=== PATIENT | female | born 1995 | race Caucasian/White ===

== ENCOUNTER 2025-01-25 20:19 | Inpatient (IN) | payer OTHER ==
[2025-01-25] MEDS: SODIUM CHLORIDE 0.9% 1,000 ML IV ONE (21:17)
[2025-01-25] MEDS: DEXAMETHASONE SOD PHOSPHATE 10 MG/ML 1 ML VIAL IV STA (21:17)
[2025-01-25 21:25] LABS: Basophils # (A) 0.14 10*3/uL (0.00-0.10); Basophils % (A) 1.1 %; Eosinophils # (A) 0.67 10*3/uL (0.04-0.35); Eosinophils % (A) 5.3 %; HCT 38.7 % (37.2-46.3); Lymphocytes # (A) 2.54 10*3/uL (0.90-5.00); Lymphocytes % (A) 19.9 %; MCHC 33.6 g/dL (32.0-37.0); MCV 86.4 fL (80.0-97.0); Mean Platelet Volume 9.2 fL (9.5-12.2); Monocytes # (A) 0.99 10*3/uL (0.20-1.00); Monocytes % (A) 7.8 %; Neutrophils # (A) 8.39 10*3/uL (1.80-7.70); Neutrophils % (A) 65.7 %; Platelet Count 568 10*3/uL (140-440); RBC 4.48 10*6/uL (4.10-5.20); RDW 13.7 % (11.5-14.5); WBC 12.75 10*3/uL (4.50-10.00)
--- NOTE | 2025-01-25 21:36 | ED ---
ENT HPI - General Chief complaint: ENT Stated complaint: Throate is swollen,PATRICIA Time Seen by Provider: 01/25/25 20:38 Source: patient Mode of arrival: ambulatory Limitations: no limitations - History of Present Illness Initial comments: 29-year-old female presenting with chief complaint of throat pain and swelling. Patient states she was diagnosed with an abscess to her tonsil last week. She was started on Augmentin. Patient reports that she does not feel any better. She still has significant pain and swelling. This is now affecting her swallowing and breathing. She is having difficulty opening her mouth. - Related Data Home Medications Medication Instructions Recorded Confirmed lamoTRIgine [LaMICtal] 25 mg PO HS 01/26/25 01/26/25 Allergies Allergy/AdvReac Type Severity Reaction Status Date / Time No Known Allergies Allergy Verified 01/26/25 07:57 Review of Systems ROS Statement: Those systems with pertinent positive or pertinent negative responses have been documented in the HPI. ROS Other: All systems not noted in ROS Statement are negative. Past Medical History Past Medical History: No Reported History History of Any Multi-Drug Resistant Organisms: None Reported Past Surgical History: No Surgical Hx Reported Past Psychological History: Bipolar, Depression Smoking Status: Never smoker Past Alcohol Use History: Occasional Past Drug Use History: Marijuana General Exam Limitations: no limitations General appearance: alert, in no apparent distress Head exam: Present: atraumatic, normocephalic, normal inspection Eye exam: Present: normal appearance, EOMI. Absent: periorbital swelling Expanded Mouth exam: Present: trismus. Absent: drooling Throat exam: tonsillar erythema, L peritonsillar mass Neck exam: Present: normal inspection. Absent: meningismus Respiratory exam: Absent: respiratory distress, stridor Cardiovascular Exam: Present: regular rate Neurological exam: Present: alert, oriented X3 Psychiatric exam: Present: normal affect, normal mood Skin exam: Present: warm, dry, normal color Course Vital Signs 01/25/25 01/26/25 01/26/25 20:34 00:00 01:00 Temperature 98.3 F Pulse Rate 87 93 93 Respiratory 18 16 17 Rate Blood Pressure 126/77 112/66 102/65 O2 Sat by Pulse 97 96 95 Oximetry 01/26/25 01/26/25 01/26/25 06:05 08:06 13:07 Temperature 97.9 F Pulse Rate 70 80 83 Respiratory 16 18 16 Rate Blood Pressure 104/61 113/79 118/53 O2 Sat by Pulse 96 98 98 Oximetry 01/26/25 14:10 Temperature 97.8 F Pulse Rate 89 Respiratory 18 Rate Blood Pressure 101/61 O2 Sat by Pulse 98 Oximetry Medical Decision Making - Medical Decision Making Was pt. sent in by a medical professional or institution (, PA, [employer], urgent care, hospital, or custodial...) When possible be specific @ -No Did you speak to anyone other than the patient for history (EMS, parent, family, police, friend...)? What history was obtained from this source @ -No Did you review nursing and triage notes (agree or disagree)? Why? @ -I reviewed and agree with nursing and triage notes Were old charts reviewed (outside hosp., previous admission, EMS record, old EKG, old radiological studies, urgent care reports/EKG's, custodial records)? Report findings @ -No old charts were reviewed Differential Diagnosis (chest pain, altered mental status, abdominal pain women, abdominal pain men, vaginal bleeding, weakness, fever, dyspnea, syncope, headache, dizziness, GI bleed, back pain, seizure, CVA, palpatations, mental health, musculoskeletal)? @ -Differential includes peritonsillar abscess, strep pharyngitis, peritonsillar mass, not an all-inclusive list EKG interpreted by me (3pts min.). @ -As above X-rays interpreted by me (1pt min.). @ -None done CT interpreted by me (1pt min.). @ -CT shows ill-defined hypodensity within the left tonsillar pillar slightly hypodense may be a 1.3 x 2.1 cm phlegmon could be moving towards developing into an abscess U/S interpreted by me (1pt. min.). @ -None done What testing was considered but not performed or refused? (CT, X-rays, U/S, labs)? Why? @ -None What meds were considered but not given or refused? Why? @ -None Did you discuss the management of the patient with other professionals (professionals i.e. , CHUCK, [employer], lab, RT, psych nurse, social media marketing analyst, booth cashier, teacher, credit risk review officer, director of casework services)? Give summary @ -My attending spoke with the [facility] provider on-call who accepted admission Was smoking cessation discussed for >3mins.? @ -No Was critical care preformed (if so, how long)? @ -No Were there social determinants of health that impacted care today? How? (Homelessness, low income, unemployed, alcoholism, drug addiction, tr ansportation, low edu. Level, literacy, decrease access to med. care, m[facility], rehab)? @ -No Was there de-escalation of care discussed even if they declined (Discuss DNR or withdrawal of care, Hospice)? DNR status @ -No What co-morbidities impacted this encounter? (DM, HTN, Smoking, COPD, CAD, Cancer, CVA, ARF, Chemo, Hep., AIDS, mental health diagnosis, sleep apnea, morbid obesity)? @ -None Was patient admitted / discharged? Hospital course, mention meds given and route, prescriptions, significant lab abnormalities, going to OR and other pertinent info. @ -29-year-old female presenting with chief complaint of throat pain. Patient was recently treated with Augmentin for strep. She has a painful left-sided peritonsillar mass. She has trismus on exam as well. White count 12.75. CT confirms that there is a phlegmon that could be developing into an abscess. Patient was treated with Decadron, pain medication, and Unasyn. She will be admitted. She is agreeable with this plan. I discussed this case with my attending Dr. Leon Undiagnosed new problem with uncertain prognosis? @ -No Drug Therapy requiring intensive monitoring for toxicity (Heparin, Nitro, Insulin, Cardizem)? @ -No Were any procedures done? @ -No Diagnosis/symptom? @ -Peritonsillar infection Acute, or Chronic, or Acute on Chronic? @ -Acute Uncomplicated (without systemic symptoms) or Complicated (systemic symptoms)? @ -Complicated Side effects of treatment? @ -No Exacerbation, Progression, or Severe Exacerbation? @ -No Poses a threat to life or bodily function? How? (Chest pain, [place], [place], pneumonia, PE, COPD, DKA, ARF, appy, cholecystitis, CVA, Diverticulitis, Homicidal, Suicidal, threat to staff... and all critical care pts) @ -Yes - Lab Data Result diagrams: 01/25/25 21:15 01/25/25 21:15 Lab Results 01/25/25 01/25/25 01/25/25 Range/Units 21:15 21:15 21:15 WBC 12.75 H (4.50-10.00) 10*3/uL RBC 4.48 (4.10-5.20) 10*6/uL Hgb 13.0 (12.0-15.0) g/dL Hct 38.7 (37.2-46.3) % MCV 86.4 (80.0-97.0) fL MCH 29.0 (27.0-32.0) pg MCHC 33.6 (32.0-37.0) g/dL Plt Count 568 H (140-440) 10*3/uL MPV 9.2 L (9.5-12.2) fL Immature Gran % (Auto) 0.2 % Neutrophils % 65.7 % Lymphocytes % 19.9 % Monocytes % 7.8 % Eosinophils % 5.3 % Basophils % 1.1 % Immature Gran # 0.02 (0.00-0.04) 10*3/uL Neutrophils # 8.39 H (1.80-7.70) 10*3/uL Lymphocytes # 2.54 (0.90-5.00) 10*3/uL Monocytes # 0.99 (0.20-1.00) 10*3/uL Eosinophils # 0.67 H (0.04-0.35) 10*3/uL Basophils # 0.14 H (0.00-0.10) 10*3/uL Sodium 140 (137-145) mmol/L Potassium 4.1 (3.5-5.1) mmol/L Chloride 103 (98-107) mmol/L Carbon Dioxide 27 (22-30) mmol/L Anion Gap 10 mmol/L BUN 17 (7-17) mg/dL Creatinine 0.82 (0.52-1.04) mg/dL Est GFR (CKD-EPI)AfAm >90 (>60 ml/min/1.73 sqM) Est GFR (CKD-EPI)NonAf >90 (>60 ml/min/1.73 sqM) Glucose 99 (74-99) mg/dL Plasma Lactic Acid Robbie 0.9 (0.7-2.0) mmol/L Calcium 9.6 (8.4-10.2) mg/dL Total Bilirubin 0.5 (0.2-1.3) mg/dL AST 31 (14-36) U/L ALT 34 (4-34) U/L Alkaline Phosphatase 73 (38-126) U/L Total Protein 8.0 (6.3-8.2) g/dL Albumin 4.5 (3.5-5.0) g/dL HCG, Qual 01/25/25 Range/Units 21:34 WBC (4.50-10.00) 10*3/uL RBC (4.10-5.20) 10*6/uL Hgb (12.0-15.0) g/dL Hct (37.2-46.3) % MCV (80.0-97.0) fL MCH (27.0-32.0) pg MCHC (32.0-37.0) g/dL Plt Count (140-440) 10*3/uL MPV (9.5-12.2) fL Immature Gran % (Auto) % Neutrophils % % Lymphocytes % % Monocytes % % Eosinophils % % Basophils % % Immature Gran # (0.00-0.04) 10*3/uL Neutrophils # (1.80-7.70) 10*3/uL Lymphocytes # (0.90-5.00) 10*3/uL Monocytes # (0.20-1.00) 10*3/uL Eosinophils # (0.04-0.35) 10*3/uL Basophils # (0.00-0.10) 10*3/uL Sodium (137-145) mmol/L Potassium (3.5-5.1) mmol/L Chloride (98-107) mmol/L Carbon Dioxide (22-30) mmol/L Anion Gap mmol/L BUN (7-17) mg/dL Creatinine (0.52-1.04) mg/dL Est GFR (CKD-EPI)AfAm (>60 ml/min/1.73 sqM) Est GFR (CKD-EPI)NonAf (>60 ml/min/1.73 sqM) Glucose (74-99) mg/dL Plasma Lactic Acid Robbie (0.7-2.0) mmol/L Calcium (8.4-10.2) mg/dL Total Bilirubin (0.2-1.3) mg/dL AST (14-36) U/L ALT (4-34) U/L Alkaline Phosphatase (38-126) U/L Total Protein (6.3-8.2) g/dL Albumin (3.5-5.0) g/dL HCG, Qual Not Detected Disposition Clinical Impression: Peritonsillar cellulitis Disposition: ADMITTED IP TO THIS HOSP Condition: Fair Time of Disposition: 23:42
[2025-01-25 21:38] LABS: ALT 34 U/L (4-34); AST 31 U/L (14-36); African American GFR (CKD) >90 (>60 ml/min/1.73 sqM); Albumin 4.5 g/dL (3.5-5.0); Alkaline Phosphatase 73 U/L (38-126); Anion Gap 10 mmol/L; Blood Urea Nitrogen 17 mg/dL (7-17); Calcium 9.6 mg/dL (8.4-10.2); Carbon Dioxide 27 mmol/L (22-30); Chloride 103 mmol/L (98-107); Glucose 99 mg/dL (74-99); Non-African American GFR(CKD) >90 (>60 ml/min/1.73 sqM); Potassium 4.1 mmol/L (3.5-5.1); Sodium 140 mmol/L (137-145); Total Bilirubin 0.5 mg/dL (0.2-1.3)
[2025-01-25] MEDS: KETOROLAC 15 MG/ML 1 ML VIAL IVP STA (22:28)
--- NOTE | 2025-01-25 23:06 | CT ---
EXAMINATION TYPE: CT soft tissue neck w con DATE OF EXAM: 01/25/2025 10:18 PM COMPARISON: None. 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 Reconstructed images in the coronal plane and sagitt al plane are reviewed. Contrast used:100 mL of Isovue 300 with IV Contrast, (none if empty) Oral contrast used: (none if empty) CT DLP: 134.9 mGycm, Automated exposure control for dose reduction was used. FINDINGS: Limited CT sections are obtained the lung apices. The lung apices appear clear. CT neck: Research Program Manager spaces are normal. Paranasal sinuses and mastoid air cells are clear. Parotid glands appear normal and symmetrical. Submandibular glands, are normal. Parapharyngeal spac es are normal. No suspicious adenopathy is evident. Left tonsillar pillar is full with some ill-defined slight hypodensity present. Phlegmon developing t owards abscess may be present measuring 1.3 x 2.1 cm. The right torus tubarius and fossa of Rosenmul ler are normal. There appears to be effacement of the left fossa of Rosenmuller. Report was called a nd case discussed with the emergency room at the time of interpretation. The hypopharynx appears within normal limits. Vocal cord level appear symmetrical. Thyroid as visualized is normal. Osseous structures are normal. IMPRESSION: 1. Ill-defined hypodensity within the left tonsillar pillar slightly hypodense may be a 1.3 x 2.1 cm phlegmon could be moving towards developing into an abscess. [facility], Workstation: [facility], 01/25/2025 11:03 PM
[2025-01-25] MEDS: MORPHINE SULFATE 4 MG/ML SYRINGE IVP STA (23:31)
[2025-01-25] MEDS: AMPICILLIN-SULBACTAM 3 GM in SODIUM CHLORIDE 0.9% 100 ML IVPB STA (23:32)
[2025-01-25] MEDS ORDERED: NALOXONE 0.4 MG/ML 1 ML VIAL IV PRN (23:40)
[2025-01-25] MEDS ORDERED: KETOROLAC 15 MG/ML 1 ML VIAL IVP PRN (23:40)
[2025-01-26] MEDS: SODIUM CHLORIDE 0.9% 1,000 ML IV SCH (01:03)
[2025-01-26] MEDS: AMPICILLIN-SULBACTAM 3 GM in SODIUM CHLORIDE 0.9% 100 ML IVPB SCH (11:44)
--- NOTE | 2025-01-26 12:34 | P.HPIM ---
History of Present Illness 29-year-old female came in with throat pain and swelling patient was having severe pain patient has is also having swallowing issues no drooling patient does not have any fever chills patient symptoms has been going on for few days. Patient is found to have left tonsillar abscess. Patient had a CT of the neck which showed the same. Patient was started on Unasyn ENT was consulted. REVIEW OF SYSTEMS: All other systems are negative except those mentioned in the HPI PHYSICAL EXAMINATION: GENERAL: The patient is alert and oriented x3, not in any acute distress. Well developed, well nourished. HEENT: Pupils are round and equally reacting to light. EOMI. No scleral icterus. No conjunctival pallor. Normocephalic, atraumatic. No thyromegaly. Left tonsillar abscess CARDIOVASCULAR: S1 and S2 present. No murmurs, rubs, or gallops. PULMONARY: Chest is clear to auscultation, no wheezing or crackles. ABDOMEN: Soft, nontender, nondistended, normoactive bowel sounds. No palpable organomegaly. MUSCULOSKELETAL: No joint swelling or deformity. EXTREMITIES: No cyanosis, clubbing, or pedal edema. NEUROLOGICAL: Gross neurological examination did not reveal any focal deficits. SKIN: No rashes. Assessment and plan -Left tonsillar abscess continue with antibiotics IV fluids ENT evaluation patient is on Unasyn at this time - Leukocytosis due to assessment #1 -Pain management Toradol and morphine as needed DVT prophylaxis: Early ambulation Past Medical History Past Medical History: No Reported History History of Any Multi-Drug Resistant Organisms: None Reported Past Surgical History: No Surgical Hx Reported Past Psychological History: Bipolar, Depression Smoking Status: Never smoker Past Alcohol Use History: Occasional Past Drug Use History: Marijuana Medications and Allergies Home Medications Medication Instructions Recorded Confirmed Type lamoTRIgine [LaMICtal] 25 mg PO HS 01/26/25 01/26/25 History Allergies Allergy/AdvReac Type Severity Reaction Status Date / Time No Known Allergies Allergy Verified 01/26/25 07:57 Physical Exam Vitals: Vital Signs Temp Pulse Resp BP Pulse Ox 01/26/25 08:06 97.9 F 80 18 113/79 98 01/26/25 06:05 70 16 104/61 96 01/26/25 01:00 93 17 102/65 95 01/26/25 00:00 93 16 112/66 96 01/25/25 20:34 98.3 F 87 18 126/77 97 Intake and Output 01/25/25 01/26/25 01/26/25 22:59 06:59 14:59 Other: Weight 49.895 kg Results CBC & Chem 7: 01/25/25 21:15 01/25/25 21:15 Labs: Abnormal Lab Results - Last 24 Hours (Table) 01/25/25 Range/Units 21:15 WBC 12.75 H (4.50-10.00) 10*3/uL Plt Count 568 H (140-440) 10*3/uL MPV 9.2 L (9.5-12.2) fL Neutrophils # 8.39 H (1.80-7.70) 10*3/uL Eosinophils # 0.67 H (0.04-0.35) 10*3/uL Basophils # 0.14 H (0.00-0.10) 10*3/uL
[2025-01-26] MEDS: MORPHINE SULFATE 4 MG/ML SYRINGE IV PRN (22:00)
--- NOTE | 2025-01-27 09:28 | P.CONS ---
History of Present Illness - Reason for Consult Consult date: 01/26/25 strept Requesting physician: Morales Leon - Chief Complaint Sore throat and difficulty swallowing x days - History of Present Illness Patient is a 29-year-old female with a past medical history significant for bipolar depression presenting to the hospital for evaluation of sore throat and difficulty swallowing apparently patient was diagnosed in the [facility] facility with possible tonsillar abscess and the patient has been treated with the oral Augmentin patient mentions some improvement initially subsequently noticed to have worsening pain to the throat area along with difficulty swallowing patient describes the pain to be sharp moderate to severe intensity without any radiation denies any nausea or vomiting no difficulty breathing abdominal pain or diarrhea he did have some chills but no high-grade fever on presentation to the hospital the patient was afebrile no fever have recorded subsequently patient was tachycardic hypotensive or hypoxic did have a white count of 12.75 with a left shift creatinine 0.82 electrolytes has been normal li mildred enzymes are normal urine hCG was negative blood cultures are currently pending patient did have a CT of the soft tissue of the neck mention ill-defined hypodensity within the left tonsillar pillar 1.3X 2.1 cm phlegmon which was developing into an abscess patient received a dose of Unasyn admitted to the hospital infectious disease was consulted for further management of antibiotic therapy Review of Systems Positive point and negatives has been mentioned in the HPI, complete review of systems was performed and all other systems are negative Past Medical History Past Medical History: No Reported History History of Any Multi-Drug Resistant Organisms: None Reported Past Surgical History: No Surgical Hx Reported Past Psychological History: Bipolar, Depression Smoking Status: Never smoker Past Alcohol Use History: Occasional Past Drug Use History: Marijuana Medications and Allergies Home Medications Medication Instructions Recorded Confirmed Type lamoTRIgine [LaMICtal] 25 mg PO HS 01/26/25 01/26/25 History Allergies Allergy/AdvReac Type Severity Reaction Status Date / Time No Known Allergies Allergy Verified 01/26/25 07:57 Physical Exam Vitals: Vital Signs Temp Pulse Resp BP Pulse Ox 01/26/25 08:06 97.9 F 80 18 113/79 98 01/26/25 06:05 70 16 104/61 96 01/26/25 01:00 93 17 102/65 95 01/26/25 00:00 93 16 112/66 96 01/25/25 20:34 98.3 F 87 18 126/77 97 Intake and Output 01/25/25 01/26/25 01/26/25 22:59 06:59 14:59 Other: Weight 49.895 kg GENERAL DESCRIPTION: Middle-age female lying in bed, no distress. No tachypnea or accessory muscle of respiration use. HEENT: Shows Pallor , no scleral icterus. Oral mucous membrane is dry. Pharynge al erythema NECK: Trachea central, no thyromegaly. LUNGS: Unlabored breathing. Clear to auscultation anteriorly. No wheeze or crackle. HEART: S1, S2, regular rate and rhythm. No loud murmur ABDOMEN: Soft, no tenderness , guarding or rigidity, no organomegaly EXTREMITIES: No edema of feet. SKIN: No rash, no masses palpable. NEUROLOGICAL: The patient is awake, alert, oriented x3, mood and affect normal. Results CBC & Chem 7: 01/25/25 21:15 01/25/25 21:15 Labs: Abnormal Lab Results - Last 24 Hours (Table) 01/25/25 Range/Units 21:15 WBC 12.75 H (4.50-10.00) 10*3/uL Plt Count 568 H (140-440) 10*3/uL MPV 9.2 L (9.5-12.2) fL Neutrophils # 8.39 H (1.80-7.70) 10*3/uL Eosinophils # 0.67 H (0.04-0.35) 10*3/uL Basophils # 0.14 H (0.00-0.10) 10*3/uL Assessment and Plan (1) Tonsillar abscess Current Visit: Yes Status: Acute Code(s): J36 - PERITONSILLAR ABSCESS SNOMED Code(s): 08074361 (2) Leukocytosis Current Visit: Yes Status: Acute Code(s): D72.829 - ELEVATED WHITE BLOOD CELL COUNT, UNSPECIFIED SNOMED Code(s): 587579884 (3) Failure of outpatient treatment Current Visit: Yes Status: Acute Code(s): Z78.9 - OTHER SPECIFIED HEALTH STATUS SNOMED Code(s): 822637288 (4) Peritonsillar cellulitis Current Visit: Yes Status: Acute Code(s): J36 - PERITONSILLAR ABSCESS SNOMED Code(s): 855630244 Plan: 1patient presented to hospital with sore throat difficulty swallowing in this patient who did have abnormal CT of the soft tissue of the neck with developing left tonsillar abscess in this patient failing outpatient oral Augmentin therapy will need to cover for the polymicrobial kristen associated with the tonsillar abscess 2-leukocytosis more likely related to tonsillar abscess 3-we will start the patient on Unasyn 3 g every 6 hours and see clinical response We will follow on clinical condition and cultures to further adjust medication if needed Thank you for this consultation we will follow the patient along with you Dictation was produced using [employer] dictation software. please excuse any grammatical, word or spelling errors. Time with Patient: Greater than 30
--- NOTE | 2025-01-27 15:17 | P.PN ---
Subjective Progress Note Date: 01/27/25 29-year-old female came in with throat pain and swelling patient was having severe pain patient has is also having swallowing issues no drooling patient does not have any fever chills patient symptoms has been going on for few days. Patient is found to have left tonsillar abscess. Patient had a CT of the neck which showed the same. Patient was started on Unasyn ENT was consulted. 01/27/2025 Patient is evaluated in follow up on the medical floor; she is having continued swelling and discomfort to the neck and difficulty opening her mouth. Has been tolerating clear liquid diet. Continues on IV unasyn with ID following closely. There is no ENT coverage available discussed with [facility] and if patient not clinically improved. Continues on IV morphine for pain. Review of Systems Constitutional: Denied any fatigue denied any fever. Cardio vascular: denied any chest pain, palpitations Gastrointestinal: denied any nausea, vomiting, diarrhea Pulmonary: Denied any shortness of breath cough Neurologic denied any new focal deficits All inpatient medications were reviewed and appropriate changes in these medications as dictated in the interval history and assessment and plan. PHYSICAL EXAMINATION: GENERAL: The patient is alert and oriented x3, not in any acute distress. Well developed, well nourished. HEENT: Pupils are round and equally reacting to light. EOMI. No scleral icterus. No conjunctival pallor. Normocephalic, atraumatic. No thyromegaly. Left tonsillar abscess CARDIOVASCULAR: S1 and S2 present. No murmurs, rubs, or gallops. PULMONARY: Chest is clear to auscultation, no wheezing or crackles. ABDOMEN: Soft, nontender, nondistended, normoactive bowel sounds. No palpable organomegaly. MUSCULOSKELETAL: No joint swelling or deformity. EXTREMITIES: No cyanosis, clubbing, or pedal edema. NEUROLOGICAL: Gross neurological examination did not reveal any focal deficits. SKIN: No rashes. Assessment and plan -Left tonsillar abscess continue with antibiotics IV fluids patient is on Unasyn at this time and will monitor for clinical improvement. May need ENT transfer will hold off at this time and did discuss with [facility] and will reevaluate the need for transfer in 48 hours. - Leukocytosis due to assessment #1 -Pain management Toradol and morphine as needed DVT prophylaxis: Early ambulation Diet as tolerated The impression and plan of care has been dictated by Jeanette Herndon Nurse Practitioner as directed. Dr. Kandy MD I have performed a history and physical examination and medical decision making of this patient, discussed the same with the dictator, and agree with the dictators assessment and plan as written, documented as a scribe. Based on total visit time, I have performed more than 50% of this visit. Objective - Vital Signs Vital signs: Vital Signs Temp 98.1 F 01/27/25 14:45 Pulse 73 01/27/25 14:45 Resp 17 01/27/25 02:00 BP 113/77 01/27/25 14:45 Pulse Ox 100 01/27/25 14:45 FiO2 Intake & Output 01/26/25 01/27/25 01/27/25 18:59 06:59 18:59 Weight 50.8 kg Other: Voiding Method Toilet Toilet # Voids 1 - Labs CBC & Chem 7: 01/25/25 21:15 01/25/25 21:15 Labs: Microbiology - Last 24 Hours (Table) 01/25/25 23:30 Blood Culture - Preliminary Blood Assessment and Plan Time with Patient: Less than 30
--- NOTE | 2025-01-27 15:33 | P.PN ---
Subjective Progress Note Date: 01/27/25 Principal diagnosis: Reason for follow-up is left tonsillar abscess Patient is a 29-year-old female with a past medical history significant for bipolar depression presenting to the hospital for evaluation of sore throat and difficulty swallowing apparently patient was diagnosed in the outside facility with possible tonsillar abscess and the patient has been treated with the oral Augmentin now presented hospital with worsening sore throat difficulty swallowing did have a CT concerning for left tonsillar pillar 1.3x 2.1 cm phlegmon. On today's evaluation that is 01/27/2025, Patient is afebrile patient is currently on room air and denies having any shortness of breath, the swelling of sore throat and difficulty swallowing however patient denies any chest pain or cough, the patient denies any nausea vomiting did not have any abdominal pain and no diarrhea. No new labs has been obtained today Objective - Vital Signs Vital signs: Vital Signs Temp 97.9 F 01/27/25 08:06 Pulse 68 01/27/25 08:06 Resp 17 01/27/25 02:00 BP 108/73 01/27/25 08:06 Pulse Ox 98 01/27/25 08:06 FiO2 Intake & Output 01/26/25 01/27/25 01/27/25 18:59 06:59 18:59 Weight 50.8 kg Other: Voiding Method Toilet Toilet # Voids 1 - Exam GENERAL DESCRIPTION: Middle-age female lying in bed in no distress HEENT: Pharyngeal erythema RESPIRATORY SYSTEM: Unlabored breathing , decreased breath sounds at bases HEART: S1 S2 regular rate and rhythm , ABDOMEN: Soft , no tenderness EXTREMITIES: No edema feet - Labs CBC & Chem 7: 01/25/25 21:15 01/25/25 21:15 Labs: Microbiology - Last 24 Hours (Table) 01/25/25 23:30 Blood Culture - Preliminary Blood Assessment and Plan (1) Tonsillar abscess Current Visit: Yes Status: Acute Code(s): J36 - PERITONSILLAR ABSCESS SNOMED Code(s): 02367001 (2) Leukocytosis Current Visit: Yes Status: Acute Code(s): D72.829 - ELEVATED WHITE BLOOD CELL COUNT, UNSPECIFIED SNOMED Code(s): 117914056 (3) Failure of outpatient treatment Current Visit: Yes Status: Acute Code(s): Z78.9 - OTHER SPECIFIED HEALTH STATUS SNOMED Code(s): 288941370 (4) Peritonsillar cellulitis Current Visit: Yes Status: Acute Code(s): J36 - PERITONSILLAR ABSCESS SNOMED Code(s): 036981962 Plan: 1patient presented to hospital with sore throat difficulty swallowing in this patient who did have abnormal CT of the soft tissue of the neck with developing left tonsillar abscess in this patient failing outpatient oral Augmentin therapy will need to cover for the polymicrobial kristen associated with the tonsillar a bscess 2-leukocytosis more likely related to tonsillar abscess 3 patient still seem to be symptomatic we will continue with the Unasyn for the 24 hours repeat a CBC to make sure white count is trending down if no improvement may need to be transferred to [facility] for [facility] evaluation discussed with the DATASTAGE DEVELOPER for admitting team Dictation was produced using [employer] dictation software. please excuse any grammatical, word or spelling errors. Time with Patient: Less than 30
[2025-01-27] MEDS: lamoTRIgine 25 MG TAB PO SCH (20:43)
[2025-01-28] MEDS ORDERED: BENZOCAINE SPRAY 1 EACH MUCOUS MEM PRN (13:04)
[2025-01-28] MEDS ORDERED: BENZOCAINE/MENTHOL LOZENG 1 EACH LOZENGE MUCOUS MEM PRN (13:04)
--- NOTE | 2025-01-28 15:09 | P.DS ---
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 when bed available. Continue IV unasyn. Continue symptomatic and supportive care; with cools s olution with lidocaine benadryl; hurricane spray prn. Patient requires ENT evaluation which is not available currently at [facility]. Hospital Course This is a 29-year-old female came in with throat pain and swelling. Which has been ongoing and failed outpatient augmentin therapy. States she was swabbed positive for strep outpatient. Patient was recommended to come to [facility] for ENT evaluation. Had CT of the neck done showing ill-defined hypodensity within the left tonsillar pillar slightly hypodense may be a 1.3 x 2.1 cm phlegmon could be moving towards developing into an abscess. Has been started on IV unasyn and has been tranfusing for the last 48 hours without significant clinical improvment. Patient is not tolerating much oral intake at this point. The pain is barely controlled with IV pain medications. ENT is not available currently at the hospital. ID has been following. Transfer to [facility] for ENT evaluation in progress. Blood culture currently pending final however has been negative for 48 hours. CBC 12.75. Renal function and electrolytes WNL. Strep group A positive by PCR. Patient is currently afebrile. No chest pain or shortness of breath. No nausea vomiting or diarrhea. Please see medication reconciliation for a list of current medications. Thank you for allowing us to participate in the care of this patient. The impression and plan of care has been dictated by Jeanette Herndon Nurse Practitioner as directed. Dr. Kandy MD I have performed a history and physical examination and medical decision making of this patient, discussed the same with the dictator, and agree with the dictators assessment and plan as written, documented as a scribe. Based on total visit time, I have performed more than 50% of this visit. Patient Condition at Discharge: Stable Plan - Discharge Summary New Discharge Prescriptions: No Action lamoTRIgine [LaMICtal] 25 mg PO HS Discharge Medication List lamoTRIgine [LaMICtal] 25 mg PO HS 01/26/25 [History] Follow up Appointment(s)/Referral(s): Miguel Wolf MD [Primary Care Provider] - 1-2 days
[2025-01-28 15:16] LABS: Basophils # (A) 0.09 10*3/uL (0.00-0.10); Basophils % (A) 0.7 %; Eosinophils # (A) 0.23 10*3/uL (0.04-0.35); Eosinophils % (A) 1.8 %; HCT 33.7 % (37.2-46.3); HGB 11.3 g/dL (12.0-15.0); Lymphocytes # (A) 2.23 10*3/uL (0.90-5.00); Lymphocytes % (A) 17.3 %; MCHC 33.5 g/dL (32.0-37.0); MCV 86.6 fL (80.0-97.0); Mean Platelet Volume 9.5 fL (9.5-12.2); Monocytes # (A) 1.01 10*3/uL (0.20-1.00); Monocytes % (A) 7.8 %; Neutrophils # (A) 9.28 10*3/uL (1.80-7.70); Neutrophils % (A) 72.2 %; Platelet Count 416 10*3/uL (140-440); RBC 3.89 10*6/uL (4.10-5.20); RDW 13.1 % (11.5-14.5); WBC 12.87 10*3/uL (4.50-10.00)
[2025-01-28] MEDS: MAG HYDROX/AL HYDROX/SIMETH 30 ML, diphenhydrAMINE ELIXIR 75 MG, LIDOCAINE VISCOUS 2% 3... PO SCH (16:46)
--- NOTE | 2025-01-29 13:49 | CT ---
EXAMINATION TYPE: CT soft tissue neck w con DATE OF EXAM: 01/29/2025 1:02 PM COMPARISON: None. CLINICAL INDICATION: Female, 29 years old with history of F/U tonsillar abscess; [facility], F/U tonsillar a bscess TECHNIQUE: Standard enhanced CT of the neck. Axial sections with coronal and sagittal reformats were obtained. Contrast used:100 ml mL of Isovue 300 with IV Contrast, (None if empty) Oral contrast used: (None if empty) CT DLP: 197 mGycm, Automated exposure control for dose reduction was used. FINDINGS: Brain: Visualized portions are grossly unremarkable. Orbits: Unremarkable Sinuses: Grossly unremarkable. Spaces of the neck: Irregular shaped somewhat linear fluid collection in the left peritonsillar regio n measuring up to 12 x 7 mm series 202 image 28 and series 201 image 70. Musculoskeletal: No acute osseous pathology. Lymph nodes: Multiple nonenlarged lymph nodes are seen along both anterior chains of the neck. Vascular structures: Visualized major arteries are patent without evidence of aneurysm. Thoracic Inlet/airway: Airway is patent. The lung apices are clear. Soft tissues/Thyroid: Thyroid and remainder of the soft tissues are unremarkable. Other: none. IMPRESSION: Somewhat linear fluid possibly representing early abscess formation in the left peritonsillar region [facility], , 01/29/2025 1:46 PM
--- NOTE | 2025-01-29 13:55 | P.DS ---
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 Continue IV unasyn. Continue symptomatic and supportive care; with cools s olution with lidocaine benadryl; hurricane spray prn. Patient requires ENT evaluation which is not available currently at [facility]. The accepting physician with internal medicine is Dr. Ortega and consult to Dr Mirza for ENT. Hospital Course This is a 29-year-old female came in with throat pain and swelling. Which has been ongoing and failed outpatient augmentin therapy. States she was swabbed positive for strep outpatient. Patient was recommended to come to [facility] for ENT evaluation. Had CT of the neck done showing ill-defined hypodensity within the left tonsillar pillar slightly hypodense may be a 1.3 x 2.1 cm phlegmon could be moving towards developing into an abscess. Has been started on IV unasyn and has been tranfusing for the last 48 hours without signi ficant clinical improvment. Patient is not tolerating much oral intake at this point. The pain is barely controlled with IV pain medications. ENT is not available currently at the hospital. ID has been following. Transfer to [facility] for ENT evaluation in progress. Blood culture currently pending final however has been negative for 48 hours. CBC 12.75. Renal function and electrolytes WNL. Strep group A positive by PCR. Patient is currently afebrile. No chest pain or shortness of breath. No nausea vomiting or diarrhea. At this time awaiting bed placement at [facility]. 01/29/2025 Updated WBC 12.87. Afebrile, heart rate 70 normal sinus rhythm, blood pressure 115/70. Please see medication reconciliation for a list of current medications. Thank you for allowing us to participate in the care of this patient. The impression and plan of care has been dictated by Jeanette Herndon, Nurse Practitioner as directed. Dr. Kandy MD I have performed a history and physical examination and medical decision making of this patient, discussed the same with the dictator, and agree with the dictators assessment and plan as written, documented as a scribe. Based on total visit time, I have performed more than 50% of this visit. Patient Condition at Discharge: Stable Plan - Discharge Summary New Discharge Prescriptions: New Ketorolac [Toradol] 15 mg IVP Q6HR PRN each PRN Reason: Moderate Pain (Scale 4 To 6) Ampicillin-Sulbactam [Unasyn 3 gm vial] 3 gm IVPB Q6HR each Benzocaine/Menthol Lozeng [Cepacol lozenge] 1 each MUCOUS MEM Q4HR PRN lozenge PRN Reason: Sore Throat Lidocaine Viscous 2% [Xylocaine Viscous] 30 ml PO TID ml Continue lamoTRIgine [LaMICtal] 25 mg PO HS Discharge Medication List lamoTRIgine [LaMICtal] 25 mg PO HS 01/26/25 [History] Ampicillin-Sulbactam [Unasyn 3 gm vial] 3 gm IVPB Q6HR each 01/28/25 [Rx] Benzocaine/Menthol Lozeng [Cepacol lozenge] 1 each MUCOUS MEM Q4HR PRN lozenge 01/28/25 [Rx] Ketorolac [Toradol] 15 mg IVP Q6HR PRN each 01/28/25 [Rx] Lidocaine Viscous 2% [Xylocaine Viscous] 30 ml PO TID ml 01/28/25 [Rx] Follow up Appointment(s)/Referral(s): Miguel Wolf MD [Primary Care Provider] - 1-2 days
[2025-01-29 19:48] VITALS: BP 109/63; PULSE 75; RESP 17; TEMP 98.6
--- NOTE | 2025-01-30 12:54 | P.PN ---
Subjective Progress Note Date: 01/28/25 Principal diagnosis: Reason for follow-up is left tonsillar abscess Patient is a 29-year-old female with a past medical history significant for bipolar depression presenting to the hospital for evaluation of sore throat and difficulty swallowing apparently patient was diagnosed in the outside facility with possible tonsillar abscess and the patient has been treated with the oral Augmentin now presented hospital with worsening sore throat difficulty swallowing did have a CT concerning for left tonsillar pillar 1.3x 2.1 cm phlegmon. On today's evaluation that is 01/28/2025, patient has been afebrile, patient is breathing comfortably and is currently on room air, patient denies having any chest pain and cough, patient denies nausea vomiting or diarrhea and no ab dominal pain still complaining of sore throat and difficulty swallowing very minimal improvement. Patient white count is 12.87 Objective - Vital Signs Vital signs: Vital Signs Temp 98.0 F 01/28/25 07:19 Pulse 65 01/28/25 07:45 Resp 16 01/28/25 07:45 BP 132/73 01/28/25 07:19 Pulse Ox 97 01/28/25 07:19 FiO2 Intake & Output 01/27/25 01/28/25 01/28/25 18:59 06:59 18:59 Intake Total 1000 Balance 1000 Intake: Intake, IV Titration 1000 Amount Ampicillin-Sulbactam 3 gm 100 In Sodium Chloride 0.9% 100 ml @ 200 mls/hr IVPB Q6HR GIGI Rx#:[id number] Sodium Chloride 0.9% 1, 900 000 ml @ 75 mls/hr IV . [id number] GIGI Rx#:[id number] Other: Voiding Method Toilet Toilet # Voids 2 2 # Bowel Movements 0 - Exam GENERAL DESCRIPTION: Middle-age female lying in bed in no distress HEENT: Pharyngeal erythema RESPIRATORY SYSTEM: Unlabored breathing , decreased breath sounds at bases HEART: S1 S2 regular rate and rhythm , ABDOMEN: Soft , no tenderness EXTREMITIES: No edema feet - Labs CBC & Chem 7: 01/28/25 15:07 01/25/25 21:15 Labs: Abnormal Lab Results - Last 24 Hours (Table) 01/27/25 Range/Units 10:24 Group A Strep (PCR) DETECTED A (Not Detectd) Microbiology - Last 24 Hours (Table) 01/25/25 23:30 Blood Culture - Preliminary Blood Assessment and Plan (1) Tonsillar abscess Status: Acute Code(s): J36 - PERITONSILLAR ABSCESS SNOMED Code(s): 62365805 (2) Leukocytosis Status: Acute Code(s): D72.829 - ELEVATED WHITE BLOOD CELL COUNT, UNSPECIFIED SNOMED Code(s): 156638217 (3) Failure of outpatient treatment Status: Acute Code(s): Z78.9 - OTHER SPECIFIED HEALTH STATUS SNOMED Code(s): 125959957 (4) Peritonsillar cellulitis Status: Acute Code(s): J36 - PERITONSILLAR ABSCESS SNOMED Code(s): 558942677 Plan: 1patient presented to hospital with sore throat difficulty swallowing in this patient who did have abnormal CT of the soft tissue of the neck with developing left tonsillar abscess in this patient failing outpatient oral Augmentin therapy will need to cover for the polymicrobial kristen associated with the tonsillar abscess 2-leukocytosis more likely related to tonsillar abscess, white count has been about the same 3 patient still seem to be symptomatic we will continue with the Unasyn for the 24 hours may need to repeat CT for follow-up on the abscess Dictation was produced using [employer] dictation software. please excuse any grammatical, word or spelling errors. Time with Patient: Less than 30
--- NOTE | 2025-01-30 12:55 | P.PN ---
Subjective Progress Note Date: 01/29/25 Principal diagnosis: Reason for follow-up is left tonsillar abscess Patient is a 29-year-old female with a past medical history significant for bipolar depression presenting to the hospital for evaluation of sore throat and difficulty swallowing apparently patient was diagnosed in the outside facility with possible tonsillar abscess and the patient has been treated with the oral Augmentin now presented hospital with worsening sore throat difficulty swallowing did have a CT concerning for left tonsillar pillar 1.3x 2.1 cm phlegmon. On today's evaluation that is 01/29/2025, Patient is afebrile this morning patient denies having any chest pain shortness of breath or cough, the patient is currently on room air, patient denies any abdominal pain no diarrhea no renu sea no vomiting patient mentions some improvement in her sore throat. No new labs were obtained today Objective - Vital Signs Vital signs: Vital Signs Temp 98.6 F 01/29/25 19:21 Pulse 75 01/29/25 19:21 Resp 17 01/29/25 19:21 BP 109/63 01/29/25 19:21 Pulse Ox 98 01/29/25 19:21 FiO2 Intake & Output 01/29/25 01/29/25 01/30/25 06:59 18:59 06:59 Other: Voiding Method Toilet Toilet # Voids 2 4 - Exam GENERAL DESCRIPTION: Middle-age female lying in bed in no distress HEENT: Pharyngeal erythema RESPIRATORY SYSTEM: Unlabored breathing , decreased breath sounds at bases HEART: S1 S2 regular rate and rhythm , ABDOMEN: Soft , no tenderness EXTREMITIES: No edema feet - Labs CBC & Chem 7: 01/28/25 15:07 01/25/25 21:15 Labs: Microbiology - Last 24 Hours (Table) 01/25/25 23:30 Blood Culture - Preliminary Blood Assessment and Plan (1) Tonsillar abscess Status: Acute Code(s): J36 - PERITONSILLAR ABSCESS SNOMED Code(s): 52257107 (2) Leukocytosis Status: Acute Code(s): D72.829 - ELEVATED WHITE BLOOD CELL COUNT, UNSPECIFIED SNOMED Code(s): 052701062 (3) Failure of outpatient treatment Status: Acute Code(s): Z78.9 - OTHER SPECIFIED HEALTH STATUS SNOMED Code(s): 096889318 (4) Peritonsillar cellulitis Status: Acute Code(s): J36 - PERITONSILLAR ABSCESS SNOMED Code(s): 759882280 Plan: 1patient presented to hospital with sore throat difficulty swallowing in this patient who did have abnormal CT of the soft tissue of the neck with developing left tonsillar abscess in this patient failing outpatient oral Augmentin therapy will need to cover for the polymicrobial kristen associated with the tonsillar abscess 2-leukocytosis more likely related to tonsillar abscess, white count has been about the same 3 patient still seem to be symptomatic 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 please excuse any grammatical, word or spelling errors. Time with Patient: Less than 30
== END 2025-01-29 20:43 | disposition short-term general hospital (02) | DRG 113 ==
LOC: EC 20:19 → 6NMEDSUR 01-26 04:02 → OBSVTOIN 01-26 04:03 → 1SOBS 01-26 13:31 → 4SSUR 01-27 18:09
PROVIDERS: ADMIT Hospitalist; ATTEND Hospitalist
DX: J36 Peritonsillar abscess (principal); F31.9 Bipolar disorder, unspecified; B95.0 Streptococcus, group A, as the cause of diseases classified elsewhere; Z79.899 Other long term (current) drug therapy
CPT/HCPCS: 36415; 70491; 80053; 83605; 84703; 85025; 87040; 87651